=== PATIENT | male | born 1970 | race Caucasian/White ===

== ENCOUNTER 2019-02-10 11:24 | Inpatient (IN) | payer BC ==
[~2019-02-10] VITALS: Ht 170.2 cm; Wt 88.9 kg
[2019-02-10] VITALS (15 sets, daily range): BP systolic 108–163; BP diastolic 69–101; PULSE 66–80; RESP 11–21; Ht 170.2 cm; Wt 88.9 kg
[~2019-02-10 11:24] MED LIST: DESFLURANE 15 MIN ONE
[2019-02-10] MEDS ORDERED: morphine 4 MG/ML VIAL IV STA (12:43)
[2019-02-10] MEDS ORDERED: ONDANSETRON 4 MG INJ IV STA (12:43)
[2019-02-10] MEDS ORDERED: SOD CHLORIDE 0.9% 1,000 ML IV STA (12:43)
[2019-02-10] MEDS ORDERED: ACETAMINOPHEN 325 MG TAB PO ONE (13:00)
[2019-02-10] MEDS ORDERED: AMPICILLIN/SULB 3 GM/NS (PMX) 100 ML IVPB ONE (14:00)
[2019-02-10] MEDS ORDERED: ACETAMINOPHEN 325 MG TAB PO PRN ×2 (14:30→17:00)
[2019-02-10] MEDS ORDERED: ONDANSETRON 4 MG INJ IV PRN ×2 (14:30→17:00)
--- NOTE | 2019-02-10 14:36 | HP ---
Date/Time of Note Date/Time of Note DATE: 02/10/19 TIME: 14:33 Assessment/Plan VTE Prophylaxis Pharmacological prophylaxis: heparin Lines/Catheters IV Catheter Type (from Nrsg): Saline Lock Assessment/Plan Hospital Course 48 yo male with obesity who presents with acute appendicitis - Continue IV zosyn - Pain control - NPO - Dr Esteban to consult from general surgery Result Diagram: 02/10/19 1310 02/10/19 1310 Results 24hrs Laboratory Tests Test 02/10/19 13:08 02/10/19 13:10 Urine Color BRISEYDA Urine Clarity CLEAR Urine pH 7.0 Urine Specific [place] 1.016 Urine Ketones NEGATIVE Urine Nitrite NEGATIVE Urine Bilirubin NEGATIVE Urine Urobilinogen NEGATIVE Urine Leukocyte Esterase NEGATIVE Urine Microscopic RBC 1 Urine Microscopic WBC 3 Urine Hemoglobin 1+ H Urine Glucose NEGATIVE Urine Total Protein NEGATIVE White Blood Count 13.6 H Red Blood Count 4.45 L Hemoglobin 13.7 L Hematocrit 39.9 L Mean Corpuscular Volume 89.7 Mean Corpuscular Hemoglobin 30.8 Mean Corpuscular Hemoglobin Concent 34.3 Red Cell Distribution Width 12.0 Platelet Count 228 Mean Platelet Volume 9.6 Immature Granulocytes % 0.300 Neutrophils % 72.0 Lymphocytes % 16.6 Monocytes % 10.5 Eosinophils % 0.3 Basophils % 0.3 Nucleated Red Blood Cells % 0.0 Immature Granulocytes # 0.040 H Neutrophils # 9.8 H Lymphocytes # 2.3 Monocytes # 1.4 H Eosinophils # 0.0 Basophils # 0.0 Nucleated Red Blood Cells # 0.0 Sodium Level 139 Potassium Level 3.5 Chloride Level 97 Carbon Dioxide Level 31 Anion Gap 11 Blood Urea Nitrogen 11 Creatinine 0.64 Est Glomerular Filtrat Rate mL/min > 60 Glucose Level 115 Calcium Level 9.2 Total Bilirubin 0.6 Direct Bilirubin 0.00 Indirect Bilirubin 0.6 Aspartate Amino Transf (AST/SGOT) 32 Alanine Aminotransferase (ALT/SGPT) 33 Alkaline Phosphatase 66 Total Protein 7.9 Albumin 4.4 Globulin 3.50 H Albumin/Globulin Ratio 1.25 Lipase 48 HPI/ROS Admit Date/Time Admit Date/Time Hx of Present Illness 48 yo male without significant PMH who presents with abdominal pain In usual state of good health until a couple days ago. Has developed lower abdominal pain which has worsened. Normal PO and bowel habits. No known fevers/chills. Came to ED where CT imaging shows acute appendicitis ROS Constitutional: no complaints, improved Eyes: no complaints ENT: no complaints Respiratory: no complaints Cardiovascular: no complaints Gastrointestinal: no complaints Genitourinary: no complaints Musculoskeletal: no complaints Skin: no complaints Neurologic: no complaints Endocrine: no complaints Lymphatic: no complaints Psychological: no complaints, nl mood/affect Immunologic: no complaints PMH/Family/Social Past Medical History Medical History: no pertinent history Medications Current Medications Ampicillin Sodium/ Sulbactam Sodium 100 ml @ 100 mls/hr ONCE ONCE IVPB Last administered on 02/10/19at 14:07; Admin Dose 100 MLS/HR; Start 02/10/19 at 14:00; Stop 02/10/19 at 14:59 Ondansetron HCl (Zofran Inj) 4 mg BRIDGE ORDER PRN IV NAUSEA/VOMITING; Start 02/10/19 at 14:30; Stop 02/11/19 at 14:29 Acetaminophen (Tylenol Tab) 650 mg ER BRIDGE PRN PO .MILD PAIN 1-3 OR TEMP; Start 02/10/19 at 14:30; Stop 02/11/19 at 14:29 Coded Allergies: No Known Allergy (Unverified , 02/10/19) Past Surgical History Past Surgical Hx: no surgical history Family History Significant Family History: no pertinent family hx Social History Alcohol Use: none Smoking Status: Never smoker Drug Use: none Exam/Review of Systems Vital Signs Vitals Vital Signs Date Temp Pulse Resp B/P (MAP) Pulse Ox O2 O2 Flow FiO2 Time Delivery Rate 02/10/19 98.6 75 17 121/73 100 Room Air 14:20 (89) Exam Constitutional: alert, oriented, well developed Psych: no complaints, nl mood/affect Head: normocephalic, atraumatic Eyes: nl conjunctiva, EOMI, nl lids, nl sclera, PERRL ENMT: nl external ears & nose, nl lips & teeth, nl nasal mucosa & septum Neck: supple, non-tender Respiratory: clear to auscultation, normal air movement Cardiovascular: regular rate and rhythm, nl pulses Gastrointestinal: soft, nl liver, spleen, non-tender Musculoskeletal: nl extremities to inspection Extremities: normal pulses Neurological: CONSTRUCTION PROJECT MANAGER II-XII intact, nl mental status, nl speech, nl strength Skin: nl turgor; No rash or lesions Lymph: nl lymph nodes PHILIPP LOPEZ MD Feb 10, 2019 14:36
[2019-02-10] MEDS ORDERED: morphine 2 MG INJ IV PRN (15:00)
[2019-02-10] MEDS ORDERED: NACL 0.9% 3 ML SYG IV SCH (15:00)
--- NOTE | 2019-02-10 15:53 | OPR ---
Date/Time of Note Date/Time of Note DATE: 02/10/19 TIME: 15:52 Operative Report Preoperative Diagnosis Acute appendicitis Postoperative Diagnosis Same Operation/Procedure Performed Laparoscopic appendectomy Surgeon see signature line Control Clerk Subassembly None Anesthesia Type: general Anesthesiologist: SHANI GARVIN MD Estimated Blood Loss: minimal Transfusion none Specimen Appendix Grafts/Implants none Complications none Indications The patient is a 48-year-old male with acute appendicitis. I discussed laparoscopic, possible open, appendectomy with the patient and her family. All benefits, risks, alternatives were discussed in detail. All questions answered. The mother and father elected to proceed per Procedure Description The patient was brought to operative room placed supine on the table. After preop antibiotics and SCDs were applied, the patient was intubated. The abdomen was cleaned, prepped, draped in usual sterile fashion. All incisions were infiltrated with half percent lidocaine with epinephrine. A 5 mm incision was made in the umbilicus. Using a 5 by laparoscope obtained trocar, the abdomen was was entered and insufflated to 15 mmHg CO2. The following trochars in place and direct vision: A right lower quadrant 5 mm left lower quadrant 12 mm I visualized the abdomen and emanating from the cecum was an obvious acute appendicitis. It was not ruptured or perforated. I made a rent through the mesentery at the base of the appendix. I then divided the base of the appendix to the cecum with a 35 mm Endo linear cutter white load. The mesentery was then divided with a 35 mm Endo linear cutter white load. The appendix was placed in Endo Catch bag removed and the 12 mm trocar site. I irrigated out the right lower quadrant and pelvis until effluent was clear. I visualized the staple lines. They were hemostatic. I desufflated the abdomen and removed all trochars. The fascia of the 12 mm trocar site was closed with 0 Vicryl. Skin incisions were closed with 4-0 Monocryl, Mastisol, and Steri-Strips marked muscle Steri-Strips. The patient tired procedure well, was extubated ER, and transferred to the recovery room in stable condition. RE EDMONDS MD Feb 10, 2019 15:53
--- NOTE | 2019-02-10 15:54 | CONS ---
Assessment/Plan Assessment/Plan Assessment/Plan (Daily) Acute appendicitis I discussed laparoscopic, possible open, appendectomy with the patient. All be nefits, risks, alternatives were discussed in detail. The patient elects to proceed. Consultation Date/Type/Reason Admit Date/Time Date/Time of Note DATE: 02/10/19 TIME: 15:53 Hx of Present Illness The patient is a 48-year-old male who developed acute onset of abdominal pain beginning yesterday. He denies fevers or chills. Denies nausea or emesis. His symptoms persisted. He thought it was likely gas. He went to his PMD today and was sent to the ER. His work-up in the ER was consistent with acute appendiciti s. Denies prior episodes. He has some decreased p.o. intake per 14 point review of systems was performed. Pertinent negatives and positive per HPI Past Medical History Medical History: no pertinent history Home Meds No Active Prescriptions or Reported Meds Medications Current Medications Ondansetron HCl (Zofran Inj) 4 mg BRIDGE ORDER PRN IV NAUSEA/VOMITING; Start 02/10/19 at 14:30; Stop 02/11/19 at 14:29 Acetaminophen (Tylenol Tab) 650 mg ER BRIDGE PRN PO .MILD PAIN 1-3 OR TEMP; Start 02/10/19 at 14:30; Stop 02/11/19 at 14:29 Piperacillin Sod/ Tazobactam Sod 100 ml @ 25 mls/hr TID@02,10,18 IVPB ; Start 02/10/19 at 18:00 IV Flush (NS 3 ml) 3 ml PER PROTOCOL IV ; Start 02/10/19 at 15:00 Morphine Sulfate (morphine) 2 mg Q4H PRN IV .SEVERE PAIN 7-10; Start 02/10/19 at 15:00 Allergies: Coded Allergies: No Known Allergy (Unverified , 02/10/19) Past Surgical History Past Surgical Hx: no surgical history Family History Significant Family History: no pertinent family hx Social History Alcohol Use: none Smoking Status: Never smoker Drug Use: none Exam/Review of Systems Exam Vitals Vital Signs Date Temp Pulse Resp B/P (MAP) Pulse Ox O2 O2 Flow FiO2 Time Delivery Rate 02/10/19 72 17 126/80 98 Room Air 15:25 (95) 02/10/19 98.6 14:20 Constitutional: alert, oriented, well developed, obese Head: normocephalic, atraumatic Eyes: nl conjunctiva, EOMI ENMT: nl external ears & nose, nl lips & teeth Neck: supple, non-tender Respiratory: clear to auscultation, normal air movement Cardiovascular: regular rate and rhythm, nl pulses Gastrointestinal: soft, tender (to RUQ) Musculoskeletal: nl extremities to inspection Extremities: normal pulses Neurological: GLOBAL MARKETING OPERATIONS MANAGER II-XII intact, nl mental status, nl speech, nl strength Skin: nl turgor, rash or lesions Results Result Diagram: 02/10/19 1310 02/10/19 1310 Results 24hrs Laboratory Tests Test 02/10/19 13:08 02/10/19 13:10 Urine Color BRISEYDA Urine Clarity CLEAR Urine pH 7.0 Urine Specific [place] 1.016 Urine Ketones NEGATIVE Urine Nitrite NEGATIVE Urine Bilirubin NEGATIVE Urine Urobilinogen NEGATIVE Urine Leukocyte Esterase NEGATIVE Urine Microscopic RBC 1 Urine Microscopic WBC 3 Urine Hemoglobin 1+ H Urine Glucose NEGATIVE Urine Total Protein NEGATIVE White Blood Count 13.6 H Red Blood Count 4.45 L Hemoglobin 13.7 L Hematocrit 39.9 L Mean Corpuscular Volume 89.7 Mean Corpuscular Hemoglobin 30.8 Mean Corpuscular Hemoglobin Concent 34.3 Red Cell Distribution Width 12.0 Platelet Count 228 Mean Platelet Volume 9.6 Immature Granulocytes % 0.300 Neutrophils % 72.0 Lymphocytes % 16.6 Monocytes % 10.5 Eosinophils % 0.3 Basophils % 0.3 Nucleated Red Blood Cells % 0.0 Immature Granulocytes # 0.040 H Neutrophils # 9.8 H Lymphocytes # 2.3 Monocytes # 1.4 H Eosinophils # 0.0 Basophils # 0.0 Nucleated Red Blood Cells # 0.0 Prothrombin Time 13.4 Prothrombin Time Ratio 1.0 INR International Normalized Ratio 1.01 Activated Partial Thromboplast Time 35.1 H Sodium Level 139 Potassium Level 3.5 Chloride Level 97 Carbon Dioxide Level 31 Anion Gap 11 Blood Urea Nitrogen 11 Creatinine 0.64 Est Glomerular Filtrat Rate mL/min > 60 Glucose Level 115 Calcium Level 9.2 Total Bilirubin 0.6 Direct Bilirubin 0.00 Indirect Bilirubin 0.6 Aspartate Amino Transf (AST/SGOT) 32 Alanine Aminotransferase (ALT/SGPT) 33 Alkaline Phosphatase 66 Troponin I < 0.012 Total Protein 7.9 Albumin 4.4 Globulin 3.50 H Albumin/Globulin Ratio 1.25 Lipase 48 Imaging Imaging Patient: MARIE ALVARADO : 1970 Age: 48 Sex: M MR #: [id number] DOS: 02/10/19 1243 Ordering MD: EMMETT ROBISON MD Location: E/R Room/Bed: PROCEDURE: CT Abdomen and Pelvis without contrast. CLINICAL INDICATION: Abdominal pain. TECHNIQUE: CT scan of the abdomen and pelvis without contrast was performed on a multidetector high-resolution CT scanner. The patient was scanned without intravenous contrast. Coronal and sagittal reformatted images were obtained from the axial source images. Images were reviewed on a high-resolution PACS workstation. One or more of the following dose reduction techniques were used: Automated exposure control, adjustment of the mA and/or kV according to patient size, use of iterative reconstruction technique. DICOM images are available. The total exam CTDI equals 16.25 mGy and the total exam DLP equals 965.82 mGy- cm. COMPARISON: None available. FINDINGS: CT ABDOMEN: Visualized lung bases: No significant infiltrate or pleural/pericardial effusion. The heart size is normal. Liver: The liver is normal in size and demonstrates normal attenuation. No evidence of solid hepatic mass or intrahepatic ductal dilatation. Gallbladder and bile ducts: Unremarkable. Spleen: Unremarkable. Pancreas: Unremarkable. No ductal dilatation, mass, or peripancreatic stranding. Adrenal glands: Unremarkable. Kidneys: No hydronephrosis, stones, or solid lesions seen. Vasculature: There is mild aortic atherosclerosis. No abdominal aortic aneurysm. Negative IVC. Lymph nodes: No adenopathy. GI: The appendix is distended and fluid-filled measuring up to 1.8 cm with appendiceal wall thickening and moderate periappendiceal fat stranding and prominent right lower quadrant lymph nodes measuring up to 2.1 x 1.2 cm. There is no evidence of free air or abscess. Small amount of free fluid tracks into the right pelvis. Negative terminal ileum and rectum. No evidence of obstruction. Negative sigmoid colon. Peritoneal cavity: No free fluid or free air. CT PELVIS: : Normal appearing bladder, distal ureters and ureterovesiculal junctions. The pelvic organs are unremarkable. Peritoneal cavity: Small amount of right pelvic free fluid. No free air. Lymph nodes: No adenopathy. Osseous structures: No acute osseous injury. No lytic or blastic lesions. Other: None. IMPRESSION: Acute appendicitis. No evidence of abscess or free air. Findings discussed with Dr. Emmett Robison on 02/10/2019 at 01:49 PM RPTAT: JJ .Slava Waterman MD, MD Date Time Electronically viewed and signed by .Slava Waterman MD, MD on 02/10/2019 13:47 .A/ CC: EMMETT ROBISON MD Medications Medication Current Medications Ondansetron HCl (Zofran Inj) 4 mg BRIDGE ORDER PRN IV NAUSEA/VOMITING; Start 02/10/19 at 14:30; Stop 02/11/19 at 14:29 Acetaminophen (Tylenol Tab) 650 mg ER BRIDGE PRN PO .MILD PAIN 1-3 OR TEMP; Start 02/10/19 at 14:30; Stop 02/11/19 at 14:29 Piperacillin Sod/ Tazobactam Sod 100 ml @ 25 mls/hr TID@02,,18 IVPB ; Start 02/10/19 at 18:00 IV Flush (NS 3 ml) 3 ml PER PROTOCOL IV ; Start 02/10/19 at 15:00 Morphine Sulfate (morphine) 2 mg Q4H PRN IV .SEVERE PAIN 7-10; Start 02/10/19 at 15:00 RE EDMONDS MD Feb 10, 2019 15:54
[2019-02-10] MEDS ORDERED: ROCURONIUM 50 MG INJ ONE (16:39)
[2019-02-10] MEDS ORDERED: FENTAnyl 50 MCG/ML VIAL ONE (16:39)
[2019-02-10] MEDS ORDERED: PROPOFOL 20 ML ONE (16:39)
[2019-02-10] MEDS ORDERED: MIDAZOLAM 1 MG/ML 2 ML INJ ONE (16:39)
[2019-02-10] MEDS ORDERED: ROPIVACAINE 0.5 % 30 ML VIAL ONE (16:39)
--- NOTE | 2019-02-10 16:42 | ERD ---
ER Documentation Chief Complaint Chief Complaint SENT BY PMD FOR EVAL RIGHT LQ ABD. PAIN FOR 3 DAYS, R/O APPY HPI Patient is a 48-year-old male with no medical problems who presents with abdominal pain. The patient has had 2 days of right lower quadrant abdominal pain. He was sent in from an urgent care to rule out appendicitis. He said that his pain is about a 1 or 2 out of 10 but when he is being palpated it is a 6 out of 10. He denies fevers. He denies vomiting or diarrhea. Upon review of old medical records this is the patient's first visit to the emergency department. ROS All systems reviewed and are negative except as per history of present illness. Medications Home Meds No Active Prescriptions or Reported Meds Allergies Allergies: Coded Allergies: No Known Allergy (Unverified , 02/10/19) PMhx/Soc Medical and Surgical Hx: pt denies Medical Hx, pt denies Surgical Hx Hx Alcohol Use: No Hx Tobacco Use: No Smoking Status: Never smoker FmHx Family History: diabetes Physical Exam Vitals Vital Signs Date Temp Pulse Resp B/P (MAP) Pulse Ox O2 O2 Flow FiO2 Time Delivery Rate 02/10/19 100.1 13:26 02/10/19 100.1 86 16 143/72 98 12:09 (95) Physical Exam Const: No acute distress Head: Atraumatic Eyes: Normal Conjunctiva ENT: Normal External Ears, Nose and Mouth. Neck: Full range of motion. No meningismus. Resp: Clear to auscultation bilaterally Cardio: Regular rate and rhythm, no murmurs Abd: Soft, right lower quadrant tenderness to palpation Skin: No petechiae or rashes Back: No midline or flank tenderness Ext: No cyanosis, or edema Neur: Awake and alert Psych: Normal Mood and Affect Result Diagram: 02/10/19 1310 02/10/19 1310 Results 24 hrs Laboratory Tests Test 02/10/19 13:08 02/10/19 13:10 Urine Color BRISEYDA Urine Clarity CLEAR Urine pH 7.0 Urine Specific [place] 1.016 Urine Ketones NEGATIVE mg/dL Urine Nitrite NEGATIVE mg/dL Urine Bilirubin NEGATIVE mg/dL Urine Urobilinogen NEGATIVE mg/dL Urine Leukocyte Esterase NEGATIVE Angela/ul Urine Microscopic RBC 1 /HPF Urine Microscopic WBC 3 /HPF Urine Hemoglobin 1+ mg/dL Urine Glucose NEGATIVE mg/dL Urine Total Protein NEGATIVE mg/dl White Blood Count 13.6 10^3/ul Red Blood Count 4.45 10^6/ul Hemoglobin 13.7 g/dl Hematocrit 39.9 % Mean Corpuscular Volume 89.7 fl Mean Corpuscular Hemoglobin 30.8 pg Mean Corpuscular Hemoglobin Concent 34.3 g/dl Red Cell Distribution Width 12.0 % Platelet Count 228 10^3/UL Mean Platelet Volume 9.6 fl Immature Granulocytes % 0.300 % Neutrophils % 72.0 % Lymphocytes % 16.6 % Monocytes % 10.5 % Eosinophils % 0.3 % Basophils % 0.3 % Nucleated Red Blood Cells % 0.0 /100WBC Immature Granulocytes # 0.040 10^3/ul Neutrophils # 9.8 10^3/ul Lymphocytes # 2.3 10^3/ul Monocytes # 1.4 10^3/ul Eosinophils # 0.0 10^3/ul Basophils # 0.0 10^3/ul Nucleated Red Blood Cells # 0.0 10^3/ul Prothrombin Time 13.4 Sec Prothrombin Time Ratio 1.0 INR International Normalized Ratio 1.01 Activated Partial Thromboplast Time 35.1 Sec Sodium Level 139 mmol/L Potassium Level 3.5 mmol/L Chloride Level 97 mmol/L Carbon Dioxide Level 31 mmol/L Anion Gap 11 Blood Urea Nitrogen 11 mg/dl Creatinine 0.64 mg/dl Est Glomerular Filtrat Rate mL/min > 60 mL/min Glucose Level 115 mg/dl Calcium Level 9.2 mg/dl Total Bilirubin 0.6 mg/dl Direct Bilirubin 0.00 mg/dl Indirect Bilirubin 0.6 mg/dl Aspartate Amino Transf (AST/SGOT) 32 IU/L Alanine Aminotransferase (ALT/SGPT) 33 IU/L Alkaline Phosphatase 66 IU/L Troponin I < 0.012 ng/ml Total Protein 7.9 g/dl Albumin 4.4 g/dl Globulin 3.50 g/dl Albumin/Globulin Ratio 1.25 Lipase 48 U/L Current Medications Medications Dose Sig/Daja Start Time Status Last (Trade) Ordered Route PRN Stop Time Admin Dose Reason Admin Sodium 1,000 ml @ Q1H STAT 02/10/19 DC 02/10/19 Chloride 1,000 mls/hr IV 12:43 13:26 02/10/19 13:42 Morphine 4 mg ONCE STAT 02/10/19 DC Sulfate IV 12:43 (morphine) 02/10/19 12:45 Ondansetron 4 mg ONCE STAT 02/10/19 DC HCl (Zofran IV 12:43 Inj) 02/10/19 12:45 650 mg ONCE ONCE 02/10/19 DC 02/10/19 Acetaminophen PO 13:00 13:26 (Tylenol 02/10/19 13:01 Tab) Ampicillin 100 ml @ ONCE ONCE 02/10/19 DC 02/10/19 Sodium/ 100 mls/hr IVPB 14:00 14:07 Sulbactam 02/10/19 14:59 Sodium Procedures/MDM CT abdomen pelvis shows acute appendicitis per radiology. Chest x-ray read by radiology. EKG read by me: Rate/Rhythm: Regular rate and rhythm at a normal rate Intervals: Normal Impression: No evidence of ischemia or arrhythmia Patient is a 48-year-old male who presents with abdominal pain. Patient was found to have acute appendicitis. The patient will be admitted to Dr. Padilla from the panel team. I spoke with Dr. Esteban the surgeon on-call who will see the patient for appendectomy. The patient was given Unasyn empirically. I doubt sepsis at this time. Departure Diagnosis: Primary Impression: Abdominal pain Abdominal location: right lower quadrant Qualified Codes: R10.31 - Right lower quadrant pain Additional Impression: Appendicitis Appendicitis type: acute appendicitis Acute appendicitis type: unspecified acute appendicitis type Qualified Codes: K35.80 - Unspecified acute appendicitis Condition: EMMETT Newberry MD Feb 10, 2019 16:42
[2019-02-10] MEDS: D5-NS + KCL 20 MEQ 1,000 ML IV SCH ×2 (16:53→22:01)
[2019-02-10] MEDS ORDERED: HYDROCODONE/APAP (10/325) TAB PO PRN (17:00)
[2019-02-10] MEDS ORDERED: morphine 4 MG/ML VIAL IV PRN (17:00)
[2019-02-10] MEDS ORDERED: IBUPROFEN 600 MG TAB PO PRN (17:00)
--- NOTE | 2019-02-10 17:00 | PREAC ---
Date/Time of Note Date/Time of Note DATE: 02/10/19 TIME: 16:59 Anesthesia Eval and Record Evaluation Time Pre-Procedure Interview DATE: 02/10/19 TIME: 16:59 Age 48 Sex male NPO: 8 hrs Preoperative diagnosis Acute Appendicitis Planned procedure Laparoscopic Appendectomy Past Medical History Past Medical History: None Surgery & Anesthesia Issues No known issue Meds Anticoagulation: No Beta Xiomy within 24 hr: No Reason Beta Xiomy not given: Pt. not on B-Xiomy No Active Prescriptions or Reported Meds Current Medications Ondansetron HCl (Zofran Inj) 4 mg BRIDGE ORDER PRN IV NAUSEA/VOMITING; Start 02/10/19 at 14:30; Stop 02/11/19 at 14:29 Acetaminophen (Tylenol Tab) 650 mg ER BRIDGE PRN PO .MILD PAIN 1-3 OR TEMP; Start 02/10/19 at 14:30; Stop 02/11/19 at 14:29 Piperacillin Sod/ Tazobactam Sod 100 ml @ 25 mls/hr TID@02,10,18 IVPB ; Start 02/10/19 at 18:00 IV Flush (NS 3 ml) 3 ml PER PROTOCOL IV ; Start 02/10/19 at 15:00 Morphine Sulfate (morphine) 2 mg Q4H PRN IV .SEVERE PAIN 7-10; Start 02/10/19 at 15:00 Piperacillin Sod/ Tazobactam Sod 100 ml @ 200 mls/hr Q6 IVPB ; Start 02/10/19 at 18:00; Status UNV Ondansetron HCl (Zofran Inj) 4 mg Q6H PRN IV NAUSEA AND/OR VOMITING; Start 02/10/19 at 17:00; Status UNV Acetaminophen (Tylenol Tab) 650 mg Q6H PRN PO PAIN LEVEL 1-3 OR FEVER; Start 02/10/19 at 17:00; Status UNV Ibuprofen (Motrin) 600 mg Q6H PRN PO PAIN LEVEL 1-3; Start 02/10/19 at 17:00; Status UNV Morphine Sulfate (morphine) 4 mg Q2H PRN IV PAIN LEVEL 8-10; Start 02/10/19 at 17:00; Status UNV Acetaminophen/ Hydrocodone Bitart ([place] (10/325)) 1 tab Q6H PRN PO PAIN LEVEL 4-7; Start 02/10/19 at 17:00; Status UNV Potassium Chloride/Dextrose/ Sod Cl 1,000 ml @ 100 mls/hr Q10H IV ; Start 02/10/19 at 16:53; Status UNV Enoxaparin Sodium (Lovenox) 40 mg DAILY@07 SC ; Start 02/11/19 at 07:00; Status UNV Meds reviewed: Yes Allergies Coded Allergies: No Known Allergy (Unverified , 02/10/19) Allergies Reviewed: Yes Labs/Studies Labs Reviewed: Reviewed by anesthesiologist Result Diagram: 02/10/19 1310 02/10/19 1310 Laboratory Tests 02/10/19 13:10 test: N/A Studies: ECG (n/a), CXR (n/a) Pre-procedure Exam Last vitals Vital Signs Date Temp Pulse Resp B/P (MAP) Pulse Ox O2 O2 Flow FiO2 Time Delivery Rate 02/10/19 98.8 71 18 120/72 97 Room Air 15:53 (88) Airway: Adequate mouth opening, Adequate thyromental dist Mallampati: Mallampati II Teeth: Normal Lung: Normal Heart: Normal ASA Physical Status ASA physical status: 1 Emergency: E Planned Anesthetic General/MAC: ETT Nerve block: TAP (bilateral) Planned Pain Management Single shot nerve block, Parenteral pain med Pre-operative Attestations Prior to commencing anesthesia and surgery, the patient was re-evaluated, there was verification of: *The patient's identity *The results of appropriate recent lab work and preoperative vital signs *The above evaluation not changing prior to induction *Anesthetic plan, risk benefits, alternative and complications discussed with patient/family; questions answered; patient/family understands, accepts and wishes to proceed. SHANI GARVIN MD Feb 10, 2019 17:00
[2019-02-10] MEDS: PIPER-TAZO 3.375 GM IV (PMX) 100 ML IVPB SCH ×4 (17:11→23:08)
[2019-02-10] MEDS ORDERED: SUGAMMADEX SODIUM 200 MG/2 ML VIAL IV ONE (17:42)
[2019-02-10] MEDS ORDERED: METOCLOPRAMIDE 10 MG INJ ONE (17:42)
[2019-02-10] MEDS ORDERED: KETOROLAC 30 MG INJ ONE (17:42)
[2019-02-10] MEDS ORDERED: ONDANSETRON 4 MG INJ ONE (17:42)
[2019-02-10] MEDS ORDERED: DEXAMETHASONE 4 MG/ML 5 ML INJ ONE (17:42)
--- NOTE | 2019-02-10 17:46 | SIPON ---
Date/Time of Note Date/Time of Note DATE: 02/10/19 TIME: 17:45 Operative Report Preoperative Diagnosis Acute appendicitis Postoperative Diagnosis Same Operation/Procedure Performed Laparoscopic appendectomy Surgeon see signature line warehouse administrative assistant None Anesthesia: general Estimated blood loss: minimal Transfusion Required none Specimen Appendix Grafts/Implants none Complications none RE EDMONDS MD Feb 10, 2019 17:46
--- NOTE | 2019-02-10 18:00 | PAC ---
Date/Time of Note Date/Time of Note DATE: 02/10/19 TIME: 18:00 Post-Anesthesia Notes Post-Anesthesia Note Last documented vital signs Vital Signs Date Temp Pulse Resp B/P (MAP) Pulse Ox O2 O2 Flow FiO2 Time Delivery Rate 02/10/19 97.8 17:59 02/10/19 97.8 71 18 120/72 97 Room Air 18:03 (88) Activity: WNL Respiratory function: WNL Cardiovascular function: WNL Mental status: Baseline Pain reasonably controlled: Yes Hydration appropriate: Yes Nausea/Vomiting absent: Yes SHANI GARVIN MD Feb 10, 2019 18:00
[2019-02-11] MEDS: PIPER-TAZO 3.375 GM IV (PMX) 100 ML IVPB SCH ×2 (05:15→12:14)
[2019-02-11] MEDS ORDERED: ENOXAPARIN 40 MG/0.4 ML SYG SC SCH (07:00)
[2019-02-11 08:33] VITALS: BP 125/74; PULSE 67; RESP 17
[2019-02-11] MEDS: D5-NS + KCL 20 MEQ 1,000 ML IV SCH (09:57)
--- NOTE | 2019-02-11 12:39 | PDOCDIS ---
Discharge Instructions DIAGNOSIS Discharge Diagnosis Appendicitis CONDITION [id number] Patient Condition: [id number] Stable FOLLOW UP/APPOINTMENTS Follow-up Plan Make an appointment to see Dr Esteban in clinic in the next 1 week PHILIPP LOPEZ MD Feb 11, 2019 12:39
--- NOTE | 2019-02-11 12:46 | PN ---
Date/Time of Note Date/Time of Note DATE: 02/11/19 TIME: 12:46 Assessment/Plan Lines/Catheters IV Catheter Type (from Nrsg): Peripheral IV [place] in Place (from Nrsg): No Assessment/Plan Assessment/Plan Postop day #1 status post lap appendectomy for nonruptured appendicitis Doing well. Okay for discharge from surgical perspective Subjective 24 Hr Interval Summary Constitutional: no complaints, improved Feeding: advancing diet Pain Control: well controlled Exam/Review of Systems Vital Signs Vitals Vital Signs Date Temp Pulse Resp B/P (MAP) Pulse Ox O2 O2 Flow FiO2 Time Delivery Rate 02/11/19 98.4 67 17 125/74 98 Room Air 08:33 (91) 02/10/19 2.0 18:03 Intake and Output 02/10/19 02/10/19 02/11/19 1515:00 23:00 07:00 IntakeIntake Total 1260 ml 850 ml OutputOutput Total 10 ml BalanceBalance 1250 ml 850 ml Exam Constitutional: alert, oriented, well developed Respiratory: clear to auscultation Cardiovascular: regular rate and rhythm Gastrointestinal: soft, other (Nondistended with some sheyla-incisional tenderness) Results Result Diagram: 02/10/19 1310 02/11/19 [id number] RE EMDONDS MD Feb 11, 2019 12:46
--- NOTE | 2019-02-11 15:09 | DS ---
Date/Time of Note Date/Time of Note DATE: 02/11/19 TIME: 15:09 Discharge Summary Admission/Discharge Info Admit Date/Time Feb 10, 2019 at 14:08 Discharge Date/Time Feb 11, 2019 at 14:19 Discharge Diagnosis Appendicitis Patient Condition: Stable Hx of Present Illness 48 yo male without significant PMH who presents with abdominal pain In usual state of good health until a couple days ago. Has developed lower abdominal pain which has worsened. Normal PO and bowel habits. No known fevers/chills. Came to ED where CT imaging shows acute appendicitis Hospital Course 48 yo male with obesity who presents with acute appendicitis - Given IV zosyn. Taken to OR by Dr Esteban who performed appendectomy. Well t olerated. Discharged to self long term Meds No Active Prescriptions or Reported Meds Follow-up Plan Make an appointment to see Dr Esteban in clinic in the next 1 week Primary Care Provider [facility] Pending Labs Laboratory Tests Test 02/11/19 04:52 Sodium Level 141 mmol/L (135-144) Potassium Level 4.4 mmol/L (3.5-5.1) Chloride Level 105 mmol/L (97-110) Carbon Dioxide Level 30 mmol/L (21-31) Anion Gap 6 (5-13) Blood Urea Nitrogen 11 mg/dl (7-20) Creatinine 0.65 mg/dl (0.61-1.24) Est Glomerular Filtrat Rate mL/min > 60 mL/min (>60) Glucose Level 191 mg/dl (70-220) Hemoglobin A1c 5.9 % (0-5.9) Calcium Level 9.5 mg/dl (8.4-10.2) Total Bilirubin 0.2 mg/dl (0.2-1.3) Direct Bilirubin 0.00 mg/dl (0.00-0.20) Indirect Bilirubin 0.2 mg/dl (0-1.1) Aspartate Amino Transf (AST/SGOT) 29 IU/L (15-46) Alanine Aminotransferase (ALT/SGPT) 23 IU/L (13-69) Alkaline Phosphatase 61 IU/L (42-121) Total Protein 7.4 g/dl (6.1-8.1) Albumin 3.9 g/dl (3.3-4.9) Globulin 3.50 g/dl (1.3-3.2) Albumin/Globulin Ratio 1.11 MILGROM,PHILIPP K MD Feb 11, 2019 15:09
== END 2019-02-11 14:19 | disposition home or self-care (01) | DRG 343 ==
LOC: E/R 11:24 → PP2 14:08 → SUATTDRO 14:31
PROVIDERS: ADMIT Internal Medicine; ATTEND Internal Medicine
PROC: 0DTJ4ZZ Resection of Appendix, Percutaneous Endoscopic Approach (ICD-10-PCS; principal; 2019-02-10 16:30)
DX: K35.80 Unspecified acute appendicitis (principal)
CPT/HCPCS: 36415; 71045; 74176; 80053; 81001; 83036; 83690; 84484; 85025; 85610; 85730; 88304; 93005; 96374; J0295; J1100; J1650; J1885; J2250; J2405; J2543; J2765; J2795; J3010; J3480; J7030